=== PATIENT | female | born 1995 | race Caucasian/White ===

== ENCOUNTER 2017-04-06 18:26 | Emergency (ER) | payer BC, OTHER ==
[~2017-04-06] VITALS: Ht 165.1 cm; Wt 76.2 kg
[~2017-04-06 18:26] MED LIST: AUGMENTIN 875-1 EACH PO; LAMICTAL100 MG PO; NORCO 5-325 TA1 EACH PO; PROZAC20 MG PO
[2017-04-06] MEDS ORDERED: PROZAC20 MG PO (19:05)
[2017-04-06 20:25] LABS: ABSOLUTE NEUTROPHILS 6.7 thou/uL (1.4-8.2); BASOPHILS 0.3 % (0.0-2.0); EOSINOPHILS 0.2 % (0.0-3.0); HEMATOCRIT 38.6 % (37.0-47.0); HEMOGLOBIN 13.2 gm/dL (12.0-15.0); LYMPHOCYTES 14.8 % (24.0-44.0); MCH 30.2 pg (26.0-34.0); MCHC 34.1 g/dL (28.0-37.0); MCV 88.5 fL (80.0-100.0); MONOCYTES 5.2 % (1.0-8.0); PLATELET COUNT 261 thou/uL (150-400); POLYS 79.5 % (36.0-66.0); RBC 4.36 mil/uL (4.20-5.00); RDW 13.4 % (10.5-14.5); WBC 8.4 thou/uL (4.0-11.0)
[2017-04-06 20:28] LABS: MANUAL DIFF NO
[2017-04-06 20:33] LABS: URINE BILIRUBIN NEGATIVE (Negative); URINE BLOOD NEGATIVE (Negative); URINE COLOR YELLOW; URINE GLUCOSE-RANDOM* NEGATIVE (Negative); URINE KETONES 2+ (Negative); URINE NITRITE NEGATIVE (Negative); URINE PROTEIN (DIPSTICK) NEGATIVE (Negative); URINE UROBILINOGEN 0.2 E.U./dl (0.2-1.0)
[2017-04-06 20:36] LABS: ANION GAP 10 mmol/L (7-16); BUN 11 mg/dL (7-18); CALCIUM 8.5 mg/dL (8.5-10.1); CHLORIDE 101 mmol/L (98-107); CO2 22 mmol/L (21-32); CREATININE 0.5 mg/dL (0.6-1.0); GLUCOSE 95 mg/dL (74-106); POTASSIUM 3.9 mmol/L (3.5-5.1); SODIUM 133 mmol/L (136-145)
[2017-04-06 20:41] LABS: ALBUMIN 4.4 g/dL (3.4-5.0); ALKALINE PHOSPHATASE 64 U/L (46-116); DIRECT BILIRUBIN < 0.1 mg/dL (<0.1-0.3); SGOT 12 U/L (15-37); SGPT 16 U/L (30-65); TOTAL BILIRUBIN 0.2 mg/dL (<0.1-1.0); TOTAL PROTEIN 7.1 g/dL (6.4-8.2)
[2017-04-06] MEDS ORDERED: ONDANSETRON HCL4 M2 PO (20:52)
[2017-04-06 21:13] VITALS: BP 99/51
== END 2017-04-06 21:13 | disposition home or self-care (01) ==
LOC: ER 18:26
PROVIDERS: Nurse Practitioner
DX: O21.9 Vomiting of pregnancy, unspecified (principal); Z3A.00 Weeks of gestation of pregnancy not specified; F32.9 Major depressive disorder, single episode, unspecified; F41.9 Anxiety disorder, unspecified

== ENCOUNTER 2017-04-15 17:04 | Emergency (ER) | payer BC, OTHER ==
[~2017-04-15] VITALS: Ht 165.1 cm; Wt 77.1 kg
[~2017-04-15 17:04] MED LIST changes: +ONDANSETRON HCL4 M2 PO
[2017-04-15 18:09] LABS: HEMATOCRIT 37.2 % (37.0-47.0); HEMOGLOBIN 12.7 gm/dL (12.0-15.0); MCH 30.2 pg (26.0-34.0); MCHC 34.3 g/dL (28.0-37.0); MCV 88.1 fL (80.0-100.0); RBC 4.22 mil/uL (4.20-5.00); WBC 8.8 thou/uL (4.0-11.0)
[2017-04-15 18:18] LABS: CALCIUM 9.4 mg/dL (8.5-10.1); CREATININE 0.5 mg/dL (0.6-1.0); POTASSIUM 3.6 mmol/L (3.5-5.1)
[2017-04-15 18:24] LABS: DIRECT BILIRUBIN 0.1 mg/dL (<0.1-0.3); TOTAL BILIRUBIN 0.4 mg/dL (<0.1-1.0); TOTAL PROTEIN 6.8 g/dL (6.4-8.2)
[2017-04-15] MEDS ORDERED: ZANTAC 150MG T150 MG PO (19:05)
[2017-04-15] MEDS ORDERED: DICLEGIS DR 101 EACH PO (19:05)
[2017-04-15 19:36] VITALS: BP 141/62
== END 2017-04-15 19:36 | disposition home or self-care (01) ==
LOC: ER 17:04
PROVIDERS: Emergency Medicine
DX: O21.9 Vomiting of pregnancy, unspecified (principal); O26.891 Other specified pregnancy related conditions, first trimester; R07.9 Chest pain, unspecified; R10.13 Epigastric pain; R10.30 Lower abdominal pain, unspecified; F32.9 Major depressive disorder, single episode, unspecified; F41.9 Anxiety disorder, unspecified; Z3A.01 Less than 8 weeks gestation of pregnancy